=== PATIENT | female | born 1980 | race African-American/Black ===

== ENCOUNTER 2017-12-08 03:49 | Emergency (ER) | payer OTHER ==
[~2017-12-08] VITALS: Ht 172.7 cm; Wt 84.4 kg
[2017-12-08] MEDS ORDERED: HUMALOG100 UNIT/1 (03:56)
[2017-12-08] MEDS ORDERED: INDOMETHACIN 2525 MG PO (05:10)
[2017-12-08] MEDS ORDERED: HYDROCODONE-AP1 EAC6 PO (05:10)
[2017-12-08 05:22] VITALS: BP 149/80
== END 2017-12-08 05:22 | disposition home or self-care (01) ==
LOC: M.ERS 03:49
DX: M25.512 Pain in left shoulder (principal); E11.9 Type 2 diabetes mellitus without complications; Z79.4 Long term (current) use of insulin

== ENCOUNTER → 2021-02-18 | Outpatient (CLI) | payer OTHER ==
[~2021-02-18] MED LIST: HUMALOG100 UNIT/1; HYDROCODONE-AP1 EAC6 PO; INDOMETHACIN 2525 MG PO
== END ==
LOC: M.ULTRA 07:36
PROVIDERS: ATTEND Nurse Practitioner
DX: K76.0 Fatty (change of) liver, not elsewhere classified (principal); R79.89 Other specified abnormal findings of blood chemistry